=== PATIENT | female | born 1975 | race Two or more races ===

== ENCOUNTER 2020-09-07 14:28 | Emergency (ER) | payer MEDICAID ==
[~2020-09-07] VITALS: Ht 157.5 cm; Wt 77.2 kg
[2020-09-07] MEDS ORDERED: ACETAMINOPHEN 325MG TABLET PO ONE (16:45)
[2020-09-07] MEDS ORDERED: KETOROLAC 60MG/2ML VIAL IM ONE (16:45)
[2020-09-07] MEDS ORDERED: ONDANSETRON 4MG ODT PO ONE (16:45)
[2020-09-07 17:15] VITALS: BP 136/83
[2020-09-07 18:23] LABS: BASOPHILS % 0.2 % (0.0-2.0); CHLORIDE 102 mEq/L (98-107); HEMATOCRIT. 41.7 % (36.0-48.0); HEMOGLOBIN. 14.3 g/dL (12.0-16.0); LYMPHOCYTES % 13.2 % (20.0-50.0); MEAN CORPUSCULAR HEMOGLOBIN 31.1 pg (28.0-32.0); MEAN CORPUSCULAR VOLUME 90.9 fL (81.0-99.0); MEAN PLATELET VOLUME 8.9 fl (7.4-10.4); MONOCYTES % 9.7 % (2.0-8.0); NEUTROPHILS % 76.9 % (40.0-76.0); PLATELET 194 x1000/uL (130-400); RED BLOOD CELL COUNT 4.59 mill/uL (4.2-5.4); RED CELL DISTRIBUTION WIDTH 13.8 % (11.6-14.6)
== END 2020-09-07 20:00 | disposition home or self-care (01) ==
LOC: ER 14:28
DX: Z20.828 Contact with and (suspected) exposure to other viral communicable diseases (principal); R50.9 Fever, unspecified; R53.83 Other fatigue; R07.89 Other chest pain; M25.512 Pain in left shoulder
CPT/HCPCS: 36415; 71045; 80053; 84484; 85025; 93005; 96372; 99285; J1885; Q0162

== ENCOUNTER 2021-09-02 09:29 | Emergency (ER) | payer MEDICAID, OTHER ==
[~2021-09-02] VITALS: Ht 160 cm; Wt 75.0 kg
[2021-09-02] MEDS ORDERED: IBUPROFEN 600MG TABLET PO ONE (10:00)
[2021-09-02 11:49] VITALS: BP 123/78
[2021-09-02] MEDS ORDERED: IBUP-2028 MT (12:23)
== END 2021-09-02 12:31 | disposition home or self-care (01) ==
LOC: ER 09:29
DX: M79.89 Other specified soft tissue disorders (principal); M79.605 Pain in left leg; M25.572 Pain in left ankle and joints of left foot; Z91.81 History of falling
CPT/HCPCS: 73562; 73590; 73610; 93970; 99284